=== PATIENT | male | born 1990 | race American Indian/Alaskan Native ===

== ENCOUNTER 2016-07-26 18:59 | Emergency (ER) | payer SELFPAY ==
[2016-07-26 19:11] VITALS: RESP 18
--- NOTE | 2016-07-26 20:44 | C.PDOC ---
History Of Present Illness Patient is a 25 year old male who presents to the ER with a complaint of sore throat since Saturday. Patient states having taken OTC medications with no relief. Denies fever, difficulty breathing, or difficulty swallowing. Time Seen by Provider: 07/26/16 19:56 Chief Complaint (Nursing): ENT Problem History/Exam Limitations: None, Clinical Condition Onset/Duration Of Symptoms: Days (Since saturday) Current Symptoms Are (Timing): Still Present Quality (Mouth/Throat): Other (Sore throat) Symptoms Have Been: Continuous Anticoagulant/Antiplatlet Use?: Unknown Recent Aspirin Use: Unknown Past Medical History Vital Signs: Last Vital Signs Temp 98.1 F 07/26/16 20:47 Pulse 75 07/26/16 20:47 Resp 18 07/26/16 20:47 BP 138/92 H 07/26/16 20:47 Pulse Ox 97 07/26/16 21:13 Family History: States: Unknown Family Hx - Social History Hx Alcohol Use: No Hx Substance Use: Yes - Immunization History Hx Tetanus Toxoid Vaccination: Yes (June 2016) Hx Influenza Vaccination: No Hx Pneumococcal Vaccination: No Review Of Systems Constitutional: Negative for: Fever ENT: Positive for: Nose Congestion, Throat Pain (Sore). Negative for: Other ( Difficulty swallowing) Respiratory: Negative for: Shortness of Breath, SOB with Excertion Physical Exam - Physical Exam Appears: Well, Non-toxic, No Acute Distress Skin: Normal Color, Warm, Dry Head: Atraumatic, Normacephalic Eye(s): bilateral: Normal Inspection, EOMI Ear(s): Bilateral: Normal Nose: Normal Oral Mucosa: Moist Throat: Erythema (Pharyngeal), No Exudate Neck: Normal, Normal ROM, Supple Lymphatic: Adenopathy Chest: Symmetrical, No Tenderness Cardiovascular: Rhythm Regular Respiratory: No Accessory Muscle Use, Other (Speaking in complete sentences) Neurological/Psych: Oriented x3, Normal Speech, Other (No focal deficits) ED Course And Treatment O2 Sat by Pulse Oximetry: 97 (Room air) Pulse Ox Interpretation: Normal Progress Note: Amoxicillin PO and lidocain 2% PO administered. Tolerating PO. No difficulty breathing. Disposition - Disposition Disposition: HOME/ ROUTINE Disposition Time: 20:45 Condition: STABLE Additional Instructions: Follow up with your primary medical doctor or clinic in 2-5 days for further evaluation. Take medications as prescribed. Return to the emergency department at any time if symptoms persist or worsen. Prescriptions: Amoxicillin 875 mg PO BID #14 tablet Ibuprofen [Motrin] 600 mg PO Q6 PRN #20 tab PRN Reason: Pain, Mild (1-3) Instructions: Pharyngitis (ED) Forms: [facility] (Zimbabwean), Work Excuse - Clinical Impression Clinical Impression: Pharyngitis - Scribe Statement The provider has reviewed the documentation as recorded by the Feiibcurt Melo All medical record entries made by the Lara were at my direction and personally dictated by me. I have reviewed the chart and agree that the record accurately reflects my personal performance of the history, physical exam, medical decision making, and the department course for this patient. I have also personally directed, reviewed, and agree with the discharge instructions and disposition.
[2016-07-26 20:48] VITALS: BP 138/92; PULSE 75; TEMP 98.1
[2016-07-26 21:13] VITALS: O2SAT 97
== END 2016-07-26 21:18 | disposition home or self-care (01) ==
LOC: C.ER 18:59
DX: J02.9 Acute pharyngitis, unspecified (principal)

== ENCOUNTER 2016-09-15 22:38 | Emergency (ER) | payer SELFPAY ==
[2016-09-15] MEDS ORDERED: MethylPREDNISolone 40 mg Vial IVP STA (23:11)
--- NOTE | 2016-09-15 23:11 | C.PDOC ---
History Of Present Illness 25 yo male w/o significant PMHx come in for evaluation of sore throat gradually developed for past 2-3 days. Pt admits, "week ago had canker sore in my mouth that I saw doctor for and antibiotic was given with complete resolution". Pt sts , (+) pain on swallow with throat swelling and exudates. Otherwise, pt denies fever, chills, headache, dizziness, neck pain, drooling, stridor, dyspnea, CP, SOB, wheezing, abd. pain, N/V/D, denies recent dental work, trismus. Ambulate to ED for evaluation, not in any apparent distress. Time Seen by Provider: 09/15/16 22:51 Chief Complaint (Nursing): ENT Problem History Per: Patient Past Medical History Reviewed: Historical Data, Nursing Documentation, Vital Signs Vital Signs: Last Vital Signs Temp 98.7 F 09/15/16 22:49 Pulse 110 H 09/15/16 22:49 Resp 20 09/15/16 22:49 BP 131/85 09/15/16 22:49 Pulse Ox 96 09/16/16 00:04 - Medical History PMH: No Chronic Diseases Surgical History: No Surg Hx Family History: States: Unknown Family Hx - Social History Hx Tobacco Use: Yes Hx Alcohol Use: No Hx Substance Use: Yes (marijuana) - Immunization History Hx Tetanus Toxoid Vaccination: Yes (June 2016) Hx Influenza Vaccination: No Hx Pneumococcal Vaccination: No Review Of Systems Except As Marked, All Systems Reviewed And Found Negative. Constitutional: Negative for: Fever, Chills ENT: Positive for: Mouth Pain, Throat Pain, Throat Swelling. Negative for: Ear Discharge, Nose Discharge Cardiovascular: Negative for: Chest Pain Respiratory: Negative for: Cough, Shortness of Breath, Wheezing Gastrointestinal: Negative for: Nausea, Vomiting, Abdominal Pain, Diarrhea Skin: Negative for: Rash Neurological: Negative for: Weakness, Numbness, Altered Mental Status, Headache , Dizziness Physical Exam - Physical Exam Appears: Well, Non-toxic, No Acute Distress Skin: Normal Color, Warm, No Rash Eye(s): bilateral: PERRL Ear(s): Bilateral: Normal Nose: No Discharge Oral Mucosa: Moist, No Drooling, No Trismus Tongue: Normal Appearing, No Lesions Lips: Normal Appearing, No Lesions Throat: Erythema (diffuse B/L), Exudate (Left tonsillar enlargement with exudate. uvula midline, no edema.), No Drooling Neck: Supple, Other (negative meningeal sign) Chest: Symmetrical Cardiovascular: Rhythm Regular Respiratory: No Decreased Breath Sounds, No Stridor, No Wheezing Gastrointestinal/Abdominal: Soft, No Tenderness Extremity: No Pedal Edema Neurological/Psych: Oriented x3, Normal Speech ED Course And Treatment - Laboratory Results Result Diagrams: 09/15/16 23:39 O2 Sat by Pulse Oximetry: 96 Pulse Ox Interpretation: Normal Progress Note: On re-eavluation, pt is afebrile, hemodynamicaly stable. Non- toxic. Tolerate PO well in ED. Pulseox 98% rA. ENT: exam c/w Left acute tonsillitis. uvula midline, no edema, no drooling, no stridor, no trismus. neck: (-) meningeal sign. Lungs: CTA B/L, BS equal B/L. ABd: benign. Neurologicaly intact. Diagnostics review , no acute leukocytosis, no left shift. BMP- normal study. Throat cx- pending. Pt advised on course of ds. ref. to F/u with ENT in 1-2 days for re-eavl. return to ED if any worsening or new changes. Disposition Counseled Patient/Family Regarding: Studies Performed, Diagnosis, Need For Followup, Rx Given - Disposition Referrals: Dayday Nuno MD [Staff Provider] - Disposition: HOME/ ROUTINE Disposition Time: 00:00 Condition: STABLE Additional Instructions: Encourage fluids Take medication as prescribed Throat gurgles with warm salty water 2-3 times daily Follow up with ENT in 2-3 days for re-evaluation. Return to ED if any worsening or new changes. Prescriptions: Clindamycin [Cleocin] 300 mg PO Q6 #28 cap Prednisone [Deltasone] 40 mg PO DAILY #6 tablet Instructions: Tonsillitis (ED) - Clinical Impression Clinical Impression: Tonsillitis
[2016-09-15 23:43] LABS: BASO # 0.1 K/uL (0.0-0.2); BASO % 1.1 % (0.0-2.0); EOS # 0.3 K/uL (0.0-0.7); EOS % 2.7 % (0.0-4.0); HEMATOCRIT 44.4 % (35.0-51.0); LYMPH # 2.9 K/uL (1.0-4.3); LYMPH % 28.3 % (20.0-40.0); MEAN CELL VOLUME 93.4 fL (80.0-94.0); MEAN CORPUSCULAR HEMOGLOBIN 31.2 pg (27.0-31.0); MEAN CORPUSCULAR HGB CONC 33.4 g/dL (33.0-37.0); MEAN PLATELET VOLUME 8.1 fL (7.2-11.7); MONO # 1.4 K/uL (0.0-0.8); MONO % 13.2 % (0.0-10.0); RED CELL DISTRIBUTION WIDTH 13.6 % (11.5-14.5); WHITE BLOOD COUNT 10.4 K/uL (4.8-10.8)
[2016-09-15 23:58] LABS: POTASSIUM 3.8 mmol/L (3.6-5.2); SODIUM 133 mmol/L (132-148)
[2016-09-16 00:01] LABS: GFR AFRICAN-AMERICAN > 60
[2016-09-16 00:02] LABS: BLOOD UREA NITROGEN 15 mg/dL (9-20); CALCIUM 9.4 mg/dl (8.6-10.4); CARBON DIOXIDE 24 mmol/L (22-30); GLUCOSE,RANDOM 115 mg/dL (75-110)
[2016-09-16 00:04] LABS: CHLORIDE 97 mmol/L (98-107)
[2016-09-16 00:48] VITALS: BP 128/83; PULSE 91; RESP 16; TEMP 97.9; O2SAT 100
== END 2016-09-16 00:48 | disposition home or self-care (01) ==
LOC: C.ER 22:38
DX: J03.90 Acute tonsillitis, unspecified (principal); Z72.0 Tobacco use
CPT/HCPCS: 80048; 85025; 87040; 87070; 96365; 96375; 99283; J2920

== ENCOUNTER 2016-12-05 19:26 | Emergency (ER) | payer SELFPAY ==
[2016-12-05 19:50] VITALS: BP 148/68; PULSE 69; TEMP 98.5; O2SAT 97
[2016-12-05] MEDS ORDERED: Acetaminophen-Codeine 300/30 mg Tab PO STA (20:10)
[2016-12-05] MEDS ORDERED: Acetaminophen-Codeine 300/30 mg Tab PO ONE (20:27)
--- NOTE | 2016-12-05 20:29 | C.PDOC ---
History Of Present Illness 26 year old male presents to the ER complaining of left lower tooth ache for 2 days. Patient notes it maybe his wisdom tooth and is unable to see a dentist. Denies fever or gum bleeding. Time Seen by Provider: 12/05/16 19:59 Chief Complaint (Nursing): Dental Pain History Per: Patient History/Exam Limitations: no limitations Onset/Duration Of Symptoms: Days (2) Current Symptoms Are (Timing): Still Present Severity: Mild Quality: Positive for: "Pain" Recent travel outside of the [place]: No Additional History Per: Patient Past Medical History Reviewed: Historical Data, Nursing Documentation, Vital Signs Vital Signs: Last Vital Signs Temp 98.5 F 12/05/16 19:47 Pulse 69 12/05/16 19:47 Resp 20 12/05/16 20:34 BP 148/68 12/05/16 19:47 Pulse Ox 97 12/05/16 21:07 - Medical History PMH: Anxiety Family History: States: Unknown Family Hx - Social History Hx Tobacco Use: Yes Hx Alcohol Use: No Hx Substance Use: Yes (marijuana) - Immunization History Hx Tetanus Toxoid Vaccination: Yes (June 2016) Hx Influenza Vaccination: No Hx Pneumococcal Vaccination: No Review Of Systems Constitutional: Negative for: Fever ENT: Positive for: Mouth Pain (Left lower tooth ache). Negative for: Other ( Gum bleeding) Physical Exam - Physical Exam Appears: Non-toxic, No Acute Distress Skin: Warm, Dry, No Rash Head: Atraumatic, Normacephalic Eye(s): bilateral: Normal Inspection, EOMI Nose: Normal Oral Mucosa: Moist Tongue: Normal Appearing, No Swelling Lips: Normal Appearing, No Swelling Teeth: Tender To Palpation (Left lower molar tenderness), Other (Impacted wisdom tooth) Gingiva: Swelling (Moderate swelling to the gums), No Bleeding, No Abscess Throat: Normal Neck: Normal ROM Chest: Symmetrical Cardiovascular: Rhythm Regular, No Murmur Respiratory: Normal Breath Sounds, No Wheezing Extremity: Bilateral: Atraumatic, Normal ROM Neurological/Psych: Oriented x3, Normal Speech Gait: Steady ED Course And Treatment O2 Sat by Pulse Oximetry: 97 (RA) Pulse Ox Interpretation: Normal Medical Decision Making Medical Decision Making: Impression: * left lower tooth ache for 2 days. Plans: * Tylenol * Penicillin Progress: Patient is in no acute distress and is improving with the tooth pain. Patient was instructed to follow up with his dentist for further evaluation. Disposition Counseled Patient/Family Regarding: Diagnosis, Need For Followup, Rx Given - Disposition Disposition: HOME/ ROUTINE Disposition Time: 20:24 Condition: STABLE Additional Instructions: Please take medications as prescribed and as needed for pain. Follow up with the dentist Prescriptions: Acetaminophen with Codeine [Tylenol with Codeine No. 3 300 mg-30 mg] 1 tab PO Q8 PRN #14 tab PRN Reason: Pain, Moderate (4-7) Penicillin VK [Penicillin VK Tab] 500 mg PO Q12 #20 tab Instructions: Toothache (ED) Forms: [facility] (Turkish), Work Excuse - POA Present On Arrival: None - Clinical Impression Clinical Impression: Tooth ache - Scribe Statement The provider has reviewed the documentation as recorded by the Scribe Raina luque All medical record entries made by the Feiibe were at my direction and personally dictated by me. I have reviewed the chart and agree that the record accurately reflects my personal performance of the history, physical exam, medical decision making, and the department course for this patient. I have also personally directed, reviewed, and agree with the discharge instructions and disposition.
[2016-12-05 20:35] VITALS: RESP 20
== END 2016-12-05 20:34 | disposition home or self-care (01) ==
LOC: C.ER 19:26
DX: K08.89 Other specified disorders of teeth and supporting structures (principal)

== ENCOUNTER 2017-10-12 14:02 | Emergency (ER) | payer OTHER ==
[2017-10-12 14:09] VITALS: O2SAT 96
[2017-10-12] MEDS ORDERED: Sodium Chloride 0.9% 1,000 ML IV ONE (14:19)
--- NOTE | 2017-10-12 14:19 | C.PDOC ---
History Of Present Illness Pt is a 26 year old male patient with FHx of DM presents to the ER with c/o abdominal pain, vomiting (5 to 6 episodes), and diarrhea (all day). Patient reports he woke up this morning for work at 5:55 and started having abdominal pains, vomiting, and diarrhea. He states his last oral intake was chicken wings last night. Patient states he had 5-6 episodes of vomiting and intermittent stomach pains associated with diarrhea. Patient notes he has eczema and takes marijuana for his anxiety. Patient denies fever and chills. Time Seen by Provider: 10/12/17 14:13 Chief Complaint (Nursing): Abdominal Pain History Per: Patient History/Exam Limitations: no limitations Onset/Duration Of Symptoms: Hrs Current Symptoms Are (Timing): Still Present Past Medical History Reviewed: Historical Data, Nursing Documentation, Vital Signs Vital Signs: Last Vital Signs Temp 99.6 F 10/12/17 14:07 Pulse 108 H 10/12/17 14:07 Resp 16 10/12/17 14:07 BP 141/95 H 10/12/17 14:07 Pulse Ox 96 10/12/17 15:07 - Medical History PMH: Anxiety Other PMH: Obesity Family History: States: Diabetes - Social History Hx Tobacco Use: Yes Hx Alcohol Use: No Hx Substance Use: Yes (marijuana) - Immunization History Hx Tetanus Toxoid Vaccination: Yes (June 2016) Hx Influenza Vaccination: No Hx Pneumococcal Vaccination: No Review Of Systems Except As Marked, All Systems Reviewed And Found Negative. Constitutional: Negative for: Fever, Chills Gastrointestinal: Positive for: Vomiting, Abdominal Pain, Diarrhea Physical Exam - Physical Exam Appears: Well, Non-toxic, No Acute Distress Skin: Normal Color, Warm, Dry Head: Atraumatic, Normacephalic Eye(s): bilateral: Normal Inspection, EOMI Ear(s): Bilateral: Normal Nose: Normal Tongue: Normal Appearing Lips: Normal Appearing Throat: Normal Neck: Normal, Normal ROM Lymphatic: Deferred Chest: Symmetrical, No Deformity Cardiovascular: Rhythm Regular, Other (mild tachycardic) Respiratory: Normal Breath Sounds, No Rales, No Wheezing Gastrointestinal/Abdominal: Bowel Sounds (slightly hyperactive), Soft, Tenderness (mild epigastric tenderness) Rectal: Deferred Back: No CVA Tenderness Extremity: Normal ROM (x4) Extremity: Bilateral: Atraumatic, Normal ROM Neurological/Psych: Oriented x3, Normal Speech, Normal Motor, Normal Sensation ED Course And Treatment - Laboratory Results Result Diagrams: 10/12/17 14:43 10/12/17 14:43 O2 Sat by Pulse Oximetry: 96 (RA) Pulse Ox Interpretation: Normal Medical Decision Making Medical Decision Making: Initial impression: Gastroenteritis Initial Plan: -- blood work -- pepcid 20 mg -- IV fluids -- Zofran Progress Note(s): 4:06 PM - pt feels better. Will d/c home Disposition - Disposition Referrals: [facility] [Outside] Disposition: HOME/ ROUTINE Disposition Time: 16:07 Condition: IMPROVED Additional Instructions: Mr. Dawkins, thank you for letting us take care of you today. Return to the ER if your symptoms worsen, or if any problems. Take the medication listed below as prescribed. Call the phone number listed below to make a follow up appointment at the [facility] Prescriptions: Ondansetron ODT [Zofran ODT] 1 odt PO BID PRN #6 odt PRN Reason: Nausea/Vomiting Instructions: Viral Gastroenteritis Forms: General Discharge Instructions Print Language: ETHIOPIAN - POA Present On Arrival: None - Clinical Impression Clinical Impression: Gastroenteritis - Scribe Statement The provider has reviewed the documentation as recorded by the Scribcurt Elaine Do Provider Attestation: All medical record entries made by the Scribe were at my direction and personally dictated by me. I have reviewed the chart and agree that the record accurately reflects my personal performance of the history, physical exam, medical decision making, and the department course for this patient. I have also personally directed, reviewed, and agree with the discharge instructions and disposition.
[2017-10-12 14:48] LABS: BASO # 0.1 K/uL (0.0-0.2); BASO % 1.4 % (0.0-2.0); EOS # 0.3 K/uL (0.0-0.7); EOS % 6.2 % (0.0-4.0); HEMOGLOBIN 15.1 g/dL (12.0-18.0); LYMPH # 1.2 K/uL (1.0-4.3); LYMPH % 21.4 % (20.0-40.0); MEAN CELL VOLUME 92.7 fL (80.0-94.0); MEAN CORPUSCULAR HEMOGLOBIN 32.2 pg (27.0-31.0); MEAN CORPUSCULAR HGB CONC 34.7 g/dL (33.0-37.0); MEAN PLATELET VOLUME 8.3 fL (7.2-11.7); MONO # 0.6 K/uL (0.0-0.8); MONO % 10.1 % (0.0-10.0); NEUT # 3.3 K/uL (1.8-7.0); NEUT % 60.9 % (50.0-75.0); RBC 4.68 Mil/uL (4.40-5.90); WHITE BLOOD COUNT 5.5 K/uL (4.8-10.8)
[2017-10-12] MEDS ORDERED: Sodium Chloride 0.9% 1,000 ML ONE (14:50)
[2017-10-12 15:06] LABS: ALB/GLOB RATIO 1.3 (1.0-2.1); ALBUMIN 4.4 g/dL (3.5-5.0); ALT/SGPT 67 U/L (21-72); AST/SGOT 36 U/L (17-59); BLOOD UREA NITROGEN 10 mg/dL (9-20); CALCIUM 9.6 mg/dl (8.6-10.4); GFR AFRICAN-AMERICAN > 60; GFR NON-AFRICAN AMERICAN > 60; LIPASE 62 U/L (23-300)
[2017-10-12 16:21] VITALS: BP 152/92; PULSE 83; TEMP 98.5
[2017-10-12 16:38] VITALS: RESP 18
== END 2017-10-12 16:38 | disposition home or self-care (01) ==
LOC: C.ER 14:02
DX: K52.9 Noninfective gastroenteritis and colitis, unspecified (principal)
CPT/HCPCS: 80053; 83690; 85025; 96361; 96365; 96375; 99284; J2405; J7030